=== PATIENT | male | born 1965 | race Caucasian/White ===

== ENCOUNTER 2021-08-07 07:08 | Emergency (ER) | payer MEDICARE, MEDICAID, SELFPAY ==
[2021-08-07 07:11] VITALS: BP 119/74; PULSE 93; RESP 22; TEMP 36.4; O2SAT 99; BMI 30.4
[2021-08-07 07:18] VITALS: BP 119/74; PULSE 93; RESP 22; TEMP 36.4; O2SAT 99
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
--- NOTE | 2021-08-07 07:23 | XR_ITS ---
WS: [id number] XR knee RT 3V* [id number] REASON FOR EXAM: pain FINDINGS: No fracture or focal bone lesion. Mild narrowing of the medial joint space with mild subchondral sclerosis. Lateral knee joint space relatively well-preserved. Mild subchondral sclerosis. Mild narrowing of the patellofemoral joint with subchondral sclerosis and marginal osteophytes of the patella. XR/XR knee RT 3V* [id number] IMPRESSION: Mild changes of osteoarthritis with no acute abnormality.
--- NOTE | 2021-08-07 07:51 | XR_ITS ---
WS: [id number] RIGHT HIP HISTORY: pain COMPARISON: No similar studies. Right hip: No acute fracture or dislocation. Small well-corticated osseous densities adjacent to the greater trochanter. May be from an old injury or enthesopathy. No acute avulsion fractures are identi fied. There is very minimal degenerative changes along the superior acetabulum. XR/XR hip RT 2-3V wo/w pel* [id number] IMPRESSION: 1. No hip fracture. 2. Very mild RIGHT hip osteoarthritis.
--- NOTE | 2021-08-07 07:51 | XR_ITS ---
WS: [id number] RIGHT ANKLE: 3 VIEW(S) TECHNIQUE: AP, oblique(s) and lateral. HISTORY: pain COMPARISON: None available. Normal anatomic alignment with no fracture or dislocation. No joint effusion or widening of the ankle mortise. No significant degenerative changes at the joint spaces. Mild atherosclerosis in the anterior posterior tibial arteries. XR/XR ankle RT min 3V* [id number] IMPRESSION: No RIGHT ankle fracture or significant arthritis. Mild peripheral arterial disease.
--- NOTE | 2021-08-07 07:52 | XR_ITS ---
WS: [id number] LUMBAR SPINE: 3 VIEWS TECHNIQUE: AP, lateral and L5-S1 spot. HISTORY: back pain COMPARISON: None available. Mild straightening of the normal lumbar lordosis with curvature and scoliosis of the lumbar spine. Se jami disc space narrowing and asymmetry at the L4-5 level. Greatest narrowing of the disc on the RIGH T. There is an elevated RIGHT hip as compared to the LEFT hip. No acute fractures are identified. Severe disc space narrowing at L4-5 and L5-S1 and moderate at the remaining levels. Facet joint arthritis is marked at L4-5 and L5-S1. Marked narrowing of the SI joints. Extensive calcification within the aorta and iliac arteries. XR/XR lumbar spine 2-3V* [id number] IMPRESSION: 1. Advanced degenerative disc disease and facet arthropathy, most significant at L4-5 and L5-S1. 2. Asymmetric disc space narrowing at L4-5, greatest on the RIGHT. 3. Extensive atherosclerosis aorta and iliac arteries.
[2021-08-07] MEDS: ketorolac 60 mg/2 mL INJ IM (07:56)
[2021-08-07] MEDS: dexamethasone 10 mg/mL INJ IM (08:10)
[2021-08-07] MEDS: orphenadrine 30 mg/mL Inj 2 mL 60 MG IM (08:10)
[2021-08-07 09:21] VITALS: BP 120/82; PULSE 90; RESP 20; O2SAT 98
[2021-08-07 09:22] VITALS: BP 120/82; PULSE 90; RESP 20; O2SAT 98
== END 2021-08-07 09:19 | disposition home or self-care (01) ==
PROVIDERS: Emergency Provider Family Medicine
DX: M54.10 Radiculopathy, site unspecified (principal); Z87.891 Personal history of nicotine dependence
CPT/HCPCS: 72100; 73502; 73562; 73610; 96372; 99284; J1100; J1885; J2360

== ENCOUNTER 2023-12-02 05:59 | Emergency (ER) | payer MEDICARE, MEDICAID, SELFPAY ==
[2023-12-02 06:00] VITALS: BP 121/87; PULSE 88; RESP 18; TEMP 36.6; O2SAT 96; BMI 31.3
--- NOTE | 2023-12-02 06:19 | PC.NURSE ---
Dr Belle notified that patient does endorse SI at this time.
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
[2023-12-02 07:13] VITALS: PULSE 95; O2SAT 95
[2023-12-02 07:21] LABS: Basophils # 0.1 10^3/uL (0.0-0.1); Basophils % 0.6 %; Eosinophils # 0.2 10^3/uL (0.0-0.8); Eosinophils % 1.9 %; Hematocrit 47.9 % (37-53); Lymphocytes # 1.1 10^3/uL (0.8-4.8); Lymphocytes % 12.7 %; Mean Corpuscular HGB Conc 33.2 g/dL (30-55); Mean Corpuscular Volume 90.4 fl (82-101); Mean Platelet Volume 9.3 fL (7.4-10.4); Monocytes # 0.8 10^3/uL (0.2-0.9); Neutrophils # 6.41 10^3/uL (1.8-7.7); Neutrophils % 75.3 %; Nucleated Red Blood Cells % 0 %; Platelet Count 306 10^3/cmm (157-399); Red Cell Distribution Width 12.8 % (12.1-15.1); White Blood Count 8.51 10^3/uL (3.29-11.43)
[2023-12-02 07:37] LABS: Add Urine Microscopic? YES; Bilirubin Urine Neg (Negative); Blood Urine 3+ (Negative); Glucose Urine UA Norm (Normal); Ketones Urine Negative (Negative); Leukocyte Esterase Urine Negative (Negative); Nitrate Urine Negative (Negative); Protein Urine Trace (Negative); RBC Urine >100 /hpf (0-2); Squamous Epithelial Cell Urine 0-4 /hpf (0-5); Urine Appearance Slightly Cloudy (CLEAR); Urine Color Yellow (Yellow); Urobilinogen Urine Neg (Negative); pH Urine 7 (5-7)
[2023-12-02 07:38] LABS: Add Urine Culture? Yes; Bacteria Urine 1+ /hpf; Mucus Urine 3+ /hpf
[2023-12-02 07:42] LABS: Alanine Aminotransferase 13 U/L (0-41); Albumin Level 4.2 g/dL (3.5-5.2); Alkaline Phosphatase 105 U/L (40-130); Anion Gap 15.7 (5-19); Aspartate Amino Transferase 15 U/L (0-40); Blood Urea Nitrogen 15 mg/dL (8-23); Calcium 9.2 mg/dL (8.5-10.5); Carbon Dioxide 27 mmol/L (22-29); Chloride 108 mmol/L (98-107); Globulin 3.5 g/dL (1.3-4.6); Glomerular Filtration Rate 86.1 mL/min (90-130); Glucose 101 mg/dL (65-115); Osmolality Calculated 305 mOsm/kg (285-295); Potassium 3.7 mmol/L (3.5-5.1); Sodium 147 mmol/L (136-145); Total Protein 7.7 g/dL (6.6-8.7)
[2023-12-02 07:52] LABS: Lipase 383 U/L (13-60)
== END 2023-12-02 08:28 | disposition home or self-care (01) ==
PROVIDERS: Emergency Provider Family Medicine; PCP Physician Assistant
DX: N20.0 Calculus of kidney (principal); R74.8 Abnormal levels of other serum enzymes; Z87.891 Personal history of nicotine dependence
CPT/HCPCS: 36415; 80053; 81001; 83690; 85025; 87086; 99284